=== PATIENT | male | born 1965 ===

== ENCOUNTER 2018-07-19 12:30 | Emergency (ER) | payer BC, OTHER ==
[2018-07-19 12:39] VITALS: BMI 29.0
[2018-07-19 12:43] VITALS: RESP 18; TEMP 99
[2018-07-19] MEDS ORDERED: ceFAZolin IV 1 gm in Dextrose 1 GM/50 ML BAG IVPB STA (12:52)
[2018-07-19] MEDS ORDERED: Sodium Chloride 0.9% 1,000 ML IV ONE (12:52)
[2018-07-19] MEDS ORDERED: Tdap Vaccine 0.5 ml Vial (10-64 yrs) IM ONE ×2 (13:23→13:49)
[2018-07-19] MEDS ORDERED: Lidocaine 1% Inj (20ml) INFIL STA (13:23)
--- NOTE | 2018-07-19 13:26 | RAD ---
Date of service: 07/19/2018 HISTORY: L upper chest wound, ? PNX/fx COMPARISON: No prior. FINDINGS: LUNGS: No active pulmonary disease. PLEURA: No significant pleural effusion identified, no pneumothorax apparent. Mild nonspecific elevation of the right hemidiaphragm. CARDIOVASCULAR: No aortic atherosclerotic calcification present. Normal cardiac size. No pulmonary vascular congestion. OSSEOUS STRUCTURES: No significant abnormalities. VISUALIZED UPPER ABDOMEN: Normal. OTHER FINDINGS: None. IMPRESSION: No active disease.
[2018-07-19] MEDS ORDERED: Lidocaine Hydrochloride 10 ML INJ ONE ×2 (13:31→13:49)
[2018-07-19] MEDS ORDERED: Lidocaine Hydrochloride 5 ML INJ ONE (13:51)
[2018-07-19] MEDS ORDERED: Bacitracin 500 Units/gm Oint Foilpak UD ONE (14:51)
--- NOTE | 2018-07-19 15:02 | C.PDOC ---
History Of Present Illness 53 year old male presents to the ED for evaluation of a laceration to the left shoulder s/p injury prior to arrival. Patient states he was at work when a piece of ceiling fell onto his left upper chest. Denies shortness of breath, chest pain, and any other associated symptoms. Time Seen by Provider: 07/19/18 12:49 Chief Complaint (Nursing): Abnormal Skin Integrity History Per: Patient History/Exam Limitations: no limitations Onset/Duration Of Symptoms: Mins Current Symptoms Are (Timing): Still Present Past Medical History Reviewed: Historical Data, Nursing Documentation, Vital Signs Vital Signs: Last Vital Signs Temp 99.0 F 07/19/18 12:40 Pulse 59 L 07/19/18 12:40 Resp 18 07/19/18 12:40 BP 159/98 H 07/19/18 12:40 Pulse Ox 98 07/19/18 12:40 Family History: States: Unknown Family Hx - Social History Hx Alcohol Use: Yes Hx Substance Use: No - Immunization History Hx Tetanus Toxoid Vaccination: No (''as a child'') Hx Influenza Vaccination: No Hx Pneumococcal Vaccination: No Review Of Systems Cardiovascular: Negative for: Chest Pain Respiratory: Negative for: Shortness of Breath Physical Exam - Physical Exam Appears: Well, Non-toxic, No Acute Distress Skin: Other (12 cm laceration over the left shoulder. active bleeding. ) Head: Atraumatic, Normacephalic Eye(s): bilateral: Normal Inspection Neck: Normal ROM, Trachea Midline, Supple, No Other (JVD.) Chest: Symmetrical, No Deformity Cardiovascular: Rhythm Regular, No Murmur Respiratory: Normal Breath Sounds, No Rales, No Rhonchi, No Wheezing Neurological/Psych: Oriented x3, Normal Speech, Normal Motor, Normal Sensation, Normal Reflexes ED Course And Treatment O2 Sat by Pulse Oximetry: 98 (RA) Pulse Ox Interpretation: Normal - Other Rad CXR X-Ray: Viewed By Me, Read By Radiologist Interpretation: FINDINGS: LUNGS: No active pulmonary disease. PLEURA: No significant pleural effusion identified, no pneumothorax apparent. Mild nonspecific elevation of the right hemidiaphragm. CARDIOVASCULAR: No aortic atherosclerotic calcification present. Normal cardiac size. No pulmonary vascular congestion. OSSEOUS STRUCTURES: No significant abnormalities. VISUALIZED UPPER ABDOMEN: Normal. OTHER FINDINGS: None. IMPRESSION: No active disease. Procedure: Wound Repair - Indications Indication(s):: Laceration - Location Location:: Left, Shoulder Shape:: Linear Dimensions Length cm: 12 cm Depth:: Subcutaneous fascia - Anesthetic Technique Local/Regional Anesthetic:: Lidocaine 1% - Irrigated Irrigated with ml of normal saline: irrigated w/ saline and betadine - Complexity Complexity:: Complex (3 layer) - Wound repair method Sutures:: # (x4) Tatyana:: Tissue glue (x15 tatyana.) - Muscle repiar layer closed with Muscle repair layer closed with:: Tetanus ordered - Patient tolerated procedure Patient Tolerated Procedure:: Well Medical Decision Making Medical Decision Making: skin laceration, no muscle involvement SQ vicryl and tatyana pressure bandage L arm sling to limit mobilty to help prevent hematoma keflex prophylaxis Tdap given 2 days return for wound check Plan: -CXR Motrin Progress/Update: CXR: no pneumothorax Wound procedure: Tetanus given. Bacitracin applied. Lidocaine 1%. Left upper chest 12 cm wound, subcutaneous tissue, muscle visible, no lac to the muscle, no arterial bleeding, wound extensively irrigated with Betadine and Saline, bloodless field. No foreign body seen, closed in layers with Vicryl suture and 30 tatyana at the surface x15, large pressure bandage applied. Patient stable for discharge home. Prescribed Cephalexin. Disposition Doctor Will See Patient In The: Office Counseled Patient/Family Regarding: Studies Performed, Diagnosis - Disposition Referrals: [facility] [Outside] [facility] [Outside] [facility] [Outside] [facility] [Outside] Disposition: HOME/ ROUTINE Disposition Time: 15:02 Condition: GOOD Additional Instructions: bendage con pression por 2 acuña para prevenir hematoma en la herida bolsa de hielo 1/2 hora por hora rolan necessario Ibuprofeno/Advil 600 mg cada 6 horas rolan necessario para dolor Keflex 500 mg, antibiotico 2 veces al leigha por 3 acuña para ayudar en PREVENIR infeccion Regressa la george de emergencias en DOS acuña Despues de las 7 de la noche Planeamos de sacar las engrapas en 7-10 acuña Prescriptions: Cephalexin [cephalexin] 500 mg PO BID #6 cap Instructions: Laceration Repair With Dodge (DC) Forms: [facility] (Khmer) Print Language: NORWEGIAN - Clinical Impression Clinical Impression: Laceration - Scribe Statement The provider has reviewed the documentation as recorded by the Scribe (Melony Zepeda) Provider Attestation: All medical record entries made by the Scribe were at my direction and personally dictated by me. I have reviewed the chart and agree that the record accurately reflects my personal performance of the history, physical exam, medical decision making, and the department course for this patient. I have also personally directed, reviewed, and agree with the discharge instructions and disposition.
[2018-07-19] MEDS ORDERED: Bacitracin 500 Units/gm Oint Foilpak UD TOP ONE (15:03)
[2018-07-19 15:13] VITALS: BP 156/99; PULSE 68
[2018-07-19 17:05] VITALS: O2SAT 98
== END 2018-07-19 15:13 | disposition home or self-care (01) ==
LOC: C.ER 12:30
DX: S41.012A Laceration without foreign body of left shoulder, initial encounter (principal); W20.8XXA Other cause of strike by thrown, projected or falling object, initial encounter; Y92.89 Other specified places as the place of occurrence of the external cause; Y99.0 Civilian activity done for income or pay; Z23 Encounter for immunization

== ENCOUNTER 2018-07-21 20:49 | Emergency (ER) | payer SELFPAY ==
[2018-07-21 20:49] VITALS: BMI 29.0
[2018-07-21 21:09] VITALS: BP 159/97; PULSE 69; RESP 20; TEMP 97.9; O2SAT 99
[2018-07-21] MEDS ORDERED: Bacitracin 500 Units/gm Oint Foilpak UD ONE (21:20)
--- NOTE | 2018-07-21 21:43 | C.PDOC ---
History Of Present Illness 53 year old male presents to the ER for wound check post op day 2. He was initially seen in the fast track by this physician for a wound to the left upper chest. Patient has had good compliance with antibiotics, kept the pressure bandage in place, and has not been moving the left arm as instructed. Denies fever or new complaint. Time Seen by Provider: 07/21/18 21:12 Chief Complaint (Nursing): Wound Check History Per: Patient History/Exam Limitations: no limitations Onset/Duration Of Symptoms: Days Ago (2) Current Symptoms Are (Timing): Better Location Of Injury: Left: Chest Quality Of Symptoms: Other (Laceration) Recent travel outside of the [place]: No Past Medical History Reviewed: Historical Data, Nursing Documentation, Vital Signs Vital Signs: Last Vital Signs Temp 97.9 F 07/21/18 21:06 Pulse 69 07/21/18 21:06 Resp 20 07/21/18 21:06 BP 159/97 H 07/21/18 21:06 Pulse Ox 99 07/21/18 21:06 Family History: States: Unknown Family Hx - Social History Hx Alcohol Use: Yes Hx Substance Use: No - Immunization History Hx Tetanus Toxoid Vaccination: No (''as a child'') Hx Influenza Vaccination: No Hx Pneumococcal Vaccination: No Review Of Systems Constitutional: Negative for: Fever, Chills Skin: Positive for: Other (Healing laceration) Physical Exam - Physical Exam Appears: Non-toxic Skin: Warm, Dry Head: Atraumatic, Normacephalic Eye(s): bilateral: Normal Inspection Oral Mucosa: Moist Chest: Other (Healing wound with debbie and sutures in place to left side. No erythema or crepitus.) Neurological/Psych: Oriented x3, Normal Speech, Normal Motor, Normal Sensation Gait: Steady ED Course And Treatment O2 Sat by Pulse Oximetry: 99 (Room air) Pulse Ox Interpretation: Normal Medical Decision Making Medical Decision Making: nicely healing wound good med and bandage compliance. return POD #7 for suture removal. Disposition Doctor Will See Patient In The: Office Counseled Patient/Family Regarding: Studies Performed, Diagnosis - Disposition Referrals: [facility] [Outside] [facility] [Outside] [facility] [Outside] Disposition: HOME/ ROUTINE Disposition Time: 21:42 Condition: GOOD Additional Instructions: regressa el Stella (leigha 7) para sacar las engrapas Limpia con jabon y agua diario Bacitracin inguento diario con [place] encima no trabaja hasta la herida esta sanado. Instructions: Wound Care Forms: [facility] (Greek), Work Excuse Print Language: GERMAN - Clinical Impression Clinical Impression: Visit for wound check - Scribe Statement The provider has reviewed the documentation as recorded by the Scribe Amilcar Hameed All medical record entries made by the Scribe were at my direction and personally dictated by me. I have reviewed the chart and agree that the record accurately reflects my personal performance of the history, physical exam, medical decision making, and the department course for this patient. I have also personally directed, reviewed, and agree with the discharge instructions and disposition.
== END 2018-07-21 21:47 | disposition home or self-care (01) ==
LOC: C.ER 20:49
DX: Z48.00 Encounter for change or removal of nonsurgical wound dressing (principal)

== ENCOUNTER 2018-07-26 12:41 | Emergency (ER) | payer MEDICAID ==
[2018-07-26 12:42] VITALS: BMI 29.0
[2018-07-26 13:32] VITALS: BP 124/86; PULSE 78; RESP 18; TEMP 98.1; O2SAT 98
--- NOTE | 2018-07-26 13:56 | C.PDOC ---
History Of Present Illness 53 y/o male presents to the ER for staple removal in left upper chest post-op day 7. Patient had laceration repair on 07/19/18. Patient states he has been cleaning the area and occasionally applying Bacitracin ointment. Denies having fever, chills, and wound drainage. Time Seen by Provider: 07/26/18 13:35 Chief Complaint (Nursing): Suture/Staple Removal History Per: Patient History/Exam Limitations: no limitations Past Medical History Reviewed: Historical Data, Nursing Documentation, Vital Signs Vital Signs: Last Vital Signs Temp 98.1 F 07/26/18 13:27 Pulse 78 07/26/18 13:27 Resp 18 07/26/18 13:27 BP 124/86 07/26/18 13:27 Pulse Ox 98 07/26/18 13:27 - Medical History PMH: No Chronic Diseases Other Surgeries: Hx of surgeries Family History: States: No Known Family Hx - Social History Hx Alcohol Use: No Hx Substance Use: No - Immunization History Hx Tetanus Toxoid Vaccination: No Hx Influenza Vaccination: No Hx Pneumococcal Vaccination: No Review Of Systems Except As Marked, All Systems Reviewed And Found Negative. Constitutional: Negative for: Fever, Chills Physical Exam - Physical Exam Appears: Non-toxic, No Acute Distress Skin: Normal Color, Warm, Dry, Other (large stapled wound closure to left upper chest without erythema, no tenderness, no fluctuance) Head: Atraumatic, Normacephalic Eye(s): bilateral: Normal Inspection Nose: Normal Oral Mucosa: Moist Neck: Supple Chest: Symmetrical Neurological/Psych: Oriented x3, Normal Speech, Normal Motor (left arm), Normal Sensation (left arm) ED Course And Treatment O2 Sat by Pulse Oximetry: 98 (RA) Pulse Ox Interpretation: Normal Medical Decision Making Medical Decision Making: nicely healing wound POD 7 mild allergic contact dermatitis of taped areas of L chest/shoulder wound, benign now debbie removed taped and bacitracin ointment Defer tape @ home if irritation continues. Disposition Doctor Will See Patient In The: Office Counseled Patient/Family Regarding: Studies Performed, Diagnosis - Disposition Referrals: [facility] [Outside] [facility] [Outside] [facility] [Outside] [facility] [Outside] Disposition: HOME/ ROUTINE Disposition Time: 13:56 Condition: GOOD Additional Instructions: mantiene cubierto y limpio Puede seguir a trabaja el Viernes. Instructions: Staple Removal Forms: [facility] (Swedish), Work Excuse Print Language: GERMAN - Clinical Impression Clinical Impression: Visit for wound check, Removal of suture - Scribe Statement The provider has reviewed the documentation as recorded by the Reynold Kemp Provider Attestation: All medical record entries made by the Ivonneibmaxwell were at my direction and personally dictated by me. I have reviewed the chart and agree that the record accurately reflects my personal performance of the history, physical exam, medical decision making, and the department course for this patient. I have also personally directed, reviewed, and agree with the discharge instructions and disposition.
[2018-07-26] MEDS ORDERED: Bacitracin Ointment 30 GM TUBE TOP ONE (14:18)
[2018-07-26] MEDS ORDERED: Bacitracin 500 Units/gm Oint Foilpak UD ONE (14:20)
== END 2018-07-26 14:29 | disposition home or self-care (01) ==
LOC: C.ER 12:41
DX: Z48.02 Encounter for removal of sutures (principal)

== ENCOUNTER 2018-12-09 09:49 | Emergency (ER) | payer MEDICAID ==
[2018-12-09 09:50] VITALS: BMI 29.0
[2018-12-09 09:56] VITALS: RESP 18; TEMP 98.5; O2SAT 100
--- NOTE | 2018-12-09 10:21 | C.PDOC ---
History Of Present Illness 53 year old male presents to the ED complaining of intermittent dizzy spells since yesterday. He describes episodes of room spinning, which are improved when sitting down. Today patient awoke and felt dizzy for a few seconds, states he decided to come in to check his blood pressure. He has no prior history of hypertension. Patient denies having any dizziness at this time. Otherwise patient denies any headaches, blurred or double vision, chest pain, SOB, numbness, weakness, or tingling. Time Seen by Provider: 12/09/18 09:59 Chief Complaint (Nursing): Dizziness/Lightheaded History Per: Patient History/Exam Limitations: no limitations Onset/Duration Of Symptoms: Intermittent Episodes Current Symptoms Are (Timing): Gone Past Medical History Reviewed: Historical Data, Nursing Documentation, Vital Signs Vital Signs: Last Vital Signs Temp 98.5 F 12/09/18 09:52 Pulse 65 12/09/18 09:52 Resp 18 12/09/18 09:52 BP 164/95 H 12/09/18 09:52 Pulse Ox 100 12/09/18 09:52 - Medical History PMH: Comment Only: HTN (denies) Family History: States: Unknown Family Hx - Social History Hx Alcohol Use: No Hx Substance Use: No - Immunization History Hx Tetanus Toxoid Vaccination: No Hx Influenza Vaccination: No Hx Pneumococcal Vaccination: No Review Of Systems Except As Marked, All Systems Reviewed And Found Negative. Constitutional: Negative for: Fever, Weakness Eyes: Negative for: Vision Change Cardiovascular: Negative for: Chest Pain Respiratory: Negative for: Shortness of Breath Gastrointestinal: Negative for: Nausea, Vomiting, Diarrhea Musculoskeletal: Negative for: Back Pain Neurological: Positive for: Dizziness. Negative for: Weakness, Numbness, Change in Speech, Headache Physical Exam - Physical Exam Appears: Non-toxic, No Acute Distress Skin: Warm, Dry, Other (Abrasions to 3rd and 4th digits patient reports recent trip and fall ) Head: Atraumatic, Normacephalic Eye(s): bilateral: Normal Inspection, PERRL, EOMI Oral Mucosa: Moist Neck: Normal ROM, No Midline Cervical Tenderness, Supple Chest: Symmetrical, No Tenderness Cardiovascular: Rhythm Regular, No Murmur Respiratory: Normal Breath Sounds, No Rales, No Rhonchi, No Wheezing Gastrointestinal/Abdominal: Soft, No Tenderness, No Distention Extremity: Bilateral: Atraumatic, No Pedal Edema, Normal Color And Temperature Pulses: Left Dorsalis Pedis: Normal, Right Dorsalis Pedis: Normal Neurological/Psych: Oriented x3, Normal Speech ED Course And Treatment - Laboratory Results Result Diagrams: 12/09/18 10:44 12/09/18 10:44 Lab Interpretation: No Acute Changes ECG: Interpreted By Me, Viewed By Me ECG Rhythm: Sinus Bradycardia ECG Interpretation: No Acute Changes Rate From EC (LAD, no prior available for comparison) O2 Sat by Pulse Oximetry: 100 (RA) Pulse Ox Interpretation: Normal Medical Decision Making Medical Decision Making: Impression: Dizziness Plan: - EKG - Blood work Blood work reviewed, discussed with patient. On re-examination, patient is resting comfortably in no acute distress. Patient continues to be asymptomatic. Patient feels comfortable going home and will be discharged. Patient given follow up instructions. Instructed to return to ER if symptoms worsen or new symptoms arise. Disposition Counseled Patient/Family Regarding: Diagnosis, Need For Followup, Rx Given - Disposition Referrals: [facility] [Outside] [facility] [employer] [facility] [Outside] Disposition: HOME/ ROUTINE Disposition Time: 11:22 Condition: STABLE Additional Instructions: ve a tu doctor Si siente ms rojas, revise kern presin arterial. Si tiene dolor de rizwan, vmitos, confusin o debilidad, [facility]. Instructions: Dizziness, Nonvertigo, (DC) Print Language: MOROCCAN - POA Present On Arrival: None - Clinical Impression Clinical Impression: Dizziness - PA / ELECTRICIAN TELEPHONE / Resident Statement MD/DO has reviewed & agrees with the documentation as recorded. - Scribe Statement The provider has reviewed the documentation as recorded by the Scribmaxwell Cruz All medical record entries made by the Scribe were at my direction and personally dictated by me. I have reviewed the chart and agree that the record accurately reflects my personal performance of the history, physical exam, medical decision making, and the department course for this patient. I have also personally directed, reviewed, and agree with the discharge instructions and disposition.
[2018-12-09 10:54] LABS: BASO % 0.6 % (0.0-2.0); EOS # 0.3 K/uL (0.0-0.7); EOS % 5.2 % (0.0-4.0); HEMOGLOBIN 14.4 g/dL (12.0-18.0); LYMPH # 1.7 K/uL (1.0-4.3); LYMPH % 28.4 % (20.0-40.0); MEAN CELL VOLUME 92.8 fL (80.0-94.0); MEAN CORPUSCULAR HEMOGLOBIN 30.6 pg (27.0-31.0); MEAN CORPUSCULAR HGB CONC 32.9 g/dL (33.0-37.0); MONO # 0.5 K/uL (0.0-0.8); MONO % 9.3 % (0.0-10.0); NEUT # 3.3 K/uL (1.8-7.0); NEUT % 56.5 % (50.0-75.0); RBC 4.71 Mil/uL (4.40-5.90); RED CELL DISTRIBUTION WIDTH 12.6 % (11.5-14.5); WHITE BLOOD COUNT 5.9 K/uL (4.8-10.8)
[2018-12-09 11:14] LABS: ALB/GLOB RATIO 1.5 (1.0-2.1); ALBUMIN 4.4 g/dL (3.5-5.0); ALT/SGPT 21 U/L (21-72); AST/SGOT 57 U/L (17-59); BLOOD UREA NITROGEN 15 mg/dL (9-20); CALCIUM 8.8 mg/dl (8.6-10.4); GFR NON-AFRICAN AMERICAN > 60
[2018-12-09 12:03] VITALS: BP 150/92; PULSE 62
--- NOTE | 2018-12-12 14:58 | CARD ---
APPROVED REPORT Date of service: 12/09/2018 EKG Measurement Heart [id number] <Conclusion> Sinus bradycardia Left axis deviation Cannot rule out inferior infarct, age undetermined Abnormal ECG
== END 2018-12-09 12:03 | disposition home or self-care (01) ==
LOC: C.ER 09:49
DX: R42 Dizziness and giddiness (principal)